=== PATIENT | male | born 1975 | race American Indian/Alaskan Native ===

== ENCOUNTER 2022-03-05 10:30 | Inpatient (IN) | payer OTHER ==
[2022-03-05] MEDS ORDERED: dilTIAZem 25 MG/5 ML INJ IV ONE (10:59)
[2022-03-05 11:43] LABS: Basophils # (Auto) 0.1 K/mm3 (0.0-0.1); Basophils % (Auto) 0.8 % (0.0-1.8); Eosinophils # (Auto) 0.2 K/mm3 (0.0-0.4); Eosinophils % (Auto) 2.5 % (0.0-4.3); Hematocrit 47.3 % (35.5-45.6); Hemoglobin 15.5 gm/dl (11.8-15.2); Lymphocytes # (Auto) 1.2 K/mm3 (1.2-5.4); Lymphocytes % (Auto) 19.9 % (13.4-35.0); Mean Corpuscular HGB Conc 33 % (32-34); Mean Corpuscular Volume 87 fl (84-94); Monocytes # (Auto) 0.5 K/mm3 (0.0-0.8); Monocytes % (Auto) 8.6 % (0.0-7.3); Platelet Count 200 K/mm3 (140-440); Red Blood Count 5.43 M/mm3 (3.65-5.03); Red Cell Distribution Width 16.5 % (13.2-15.2)
--- NOTE | 2022-03-05 11:56 | XRay Report ---
CHEST 1 VIEW 03/05/2022 10:47 AM INDICATION / CLINICAL INFORMATION: Dyspnea. COMPARISON: None available. FINDINGS: SUPPORT DEVICES: None. HEART / MEDIASTINUM: No significant abnormality. LUNGS / PLEURA: No significant pulmonary or pleural abnormality. No pneumothorax. ADDITIONAL FINDINGS: No significant additional findings. IMPRESSION: 1. No acute findings. Signer Name: Dusty Suggs Jr, MD Signed: 03/05/2022 11:52 AM Workstation Name: [id number]
[2022-03-05] MEDS ORDERED: hydrALAZINE 20 MG/1 ML INJ IV ONE (12:00)
[2022-03-05 12:06] LABS: Alanine Aminotransferase 19 units/L (7-56); Albumin 4.8 g/dL (3.9-5); BUN/Creatinine Ratio 11; Blood Urea Nitrogen 15 mg/dL (9-20); Calcium 9.4 mg/dL (8.4-10.2); Hemolysis Index 7
--- NOTE | 2022-03-05 14:22 | Emergency Department Report ---
ED General Adult HPI - General Chief complaint: High BP Stated complaint: HYPERTENSION PUI?: No Time Seen by Provider: 03/05/22 10:50 Source: EMS Mode of arrival: Stretcher Limitations: No Limitations - History of Present Illness Initial comments: pt here with htn, reports med compliance, no other complaints pt had his physical today and noticed his BP is leevated, no chest pain no headache -: unknown Severity scale (0 -10): 0 Associated Symptoms: denies: denies other symptoms, confusion, chest pain, cough Treatments Prior to Arrival: none - Related Data Allergies Allergy/AdvReac Type Severity Reaction Status Date / Time No Known Allergies Allergy Verified 03/05/22 10:45 ED Review of Systems ROS: Stated complaint: HYPERTENSION Other details as noted in HPI Constitutional: denies: chills, fever Eyes: denies: eye pain, eye discharge, vision change ENT: denies: ear pain, throat pain Respiratory: denies: cough, shortness of breath, wheezing Cardiovascular: denies: chest pain, palpitations Endocrine: no symptoms reported Gastrointestinal: denies: abdominal pain, nausea, diarrhea Genitourinary: denies: urgency, dysuria Musculoskeletal: denies: back pain, joint swelling, arthralgia Skin: denies: rash, lesions Neurological: denies: headache, weakness, paresthesias Psychiatric: denies: anxiety, depression Hematological/Lymphatic: denies: easy bleeding, easy bruising ED Past Medical Hx - Past Medical History Previous Medical History?: Yes Hx Hypertension: Yes - Social History Smoking Status: Never Smoker Substance Use Type: Alcohol ED Physical Exam - General Limitations: No Limitations General appearance: alert, in no apparent distress - Head Head exam: Present: atraumatic, normocephalic - Eye Eye exam: Present: normal appearance - ENT ENT exam: Present: mucous membranes moist - Neck Neck exam: Present: normal inspection - Respiratory Respiratory exam: Present: normal lung sounds bilaterally. Absent: respiratory distress - Cardiovascular Cardiovascular Exam: Present: regular rate, normal rhythm. Absent: systolic murmur, diastolic murmur, rubs, gallop - GI/Abdominal GI/Abdominal exam: Present: soft, normal bowel sounds - Rectal Rectal exam: Present: deferred - Extremities Exam Extremities exam: Present: normal inspection - Back Exam Back exam: Present: normal inspection - Neurological Exam Neurological exam: Present: alert, oriented X3 - Psychiatric Psychiatric exam: Present: normal affect, normal mood - Skin Skin exam: Present: warm, dry, intact, normal color. Absent: rash ED Course Vital Signs 03/05/22 03/05/22 03/05/22 10:41 10:49 11:05 Temperature 97.9 F Pulse Rate 81 72 77 Respiratory 14 20 Rate Blood Pressure 182/131 182/131 Blood Pressure 179/134 182/131 [Left] O2 Sat by Pulse 99 98 Oximetry 03/05/22 03/05/22 03/05/22 11:51 12:06 12:28 Temperature Pulse Rate 74 71 81 Respiratory 20 20 Rate Blood Pressure 179/134 Blood Pressure 174/123 169/116 [Left] O2 Sat by Pulse 98 98 Oximetry 03/05/22 13:37 Temperature Pulse Rate 98 H Respiratory 20 Rate Blood Pressure Blood Pressure 158/97 [Left] O2 Sat by Pulse 98 Oximetry ED Medical Decision Making - Lab Data Result diagrams: 03/05/22 11:23 03/05/22 11:23 - EKG Data EKG shows normal: sinus rhythm Rate: normal - EKG Data Interpretation: nonspecific ST-T wave oren, LVH - Radiology Data Radiology results: report reviewed, image reviewed - Medical Decision Making work p negative , cardiazem given hydralazine BP improved , spoke with patricio Raymundo agreed to admit him here for HTN urgency for card consult Critical care attestation.: If time is entered above; I have spent that time in minutes in the direct care of this critically ill patient, excluding procedure time. ED Disposition Clinical Impression: Abnormal EKG, Hypertensive emergency Disposition: ADMITTED INPATIENT Is pt being admited?: Yes Does the pt Need Aspirin: No Condition: Stable Instructions: Hypertension (ED) Referrals: RICHAR ARMANDO [Other] - 3-5 Days
--- NOTE | 2022-03-05 14:34 | History and Physical Report ---
History of Present Illness Chief complaint: My blood pressure is really high History of present illness: 46 YO Male with HTN, Obesity, with positive family history of coronary artery disease presents to ED for evaluation. Patient reports "my blood pressure is really high". Patient states that he underwent a routine physical exam today and was found to have elevated blood pressure. EMS was notified and upon arriva l the patient was found to be in distress and was subsequent transported to [facility] for further care and evaluation of the aforementioned symptoms. The patient was seen and evaluated emergency department at 1106 injury. Patient was found to have a blood pressure of 573669/123-131 mmHg which is consistent with hypertensive emergency. Patient initiated on IV antihypertensive therapy and admitted to telemetry due to increased risk of worsening symptoms and for medical stabilization. Patient also found to have EKG changes as well as symptoms consistent with diastolic CHF, hyponatremia, and volume depletion. Cardiology team consulted. Echocardiogram ordered and pending at time of admission. Patient denies fever, chills, chest pain, palpitation, productive cough, skin rash, recent contact, or known exposure to COVID-19. No prior admission for review. No medication listed at time of admission for reconciliation. Advanced care planning conducted in ED. Past History Past Medical History: hypertension, other Past Surgical History: No surgical history, Other (Reviewed) Social history: , lives with family. denies: smoking, alcohol abuse, prescription drug abuse Family history: CAD, hypertension Medications and Allergies Allergies Allergy/AdvReac Type Severity Reaction Status Date / Time No Known Allergies Allergy Verified 03/05/22 10:45 Review of Systems Constitutional: no weight loss, no weight gain, no fever, no chills Ears, nose, mouth and throat: no ear pain, no ear discharge, no tinnitis, no decreased hearing, no nose pain Cardiovascular: no chest pain, no lightheadedness Respiratory: no cough, no excessive sputum, no hemoptysis Gastrointestinal: no abdominal pain, no nausea, no vomiting, no diarrhea Genitourinary Male: no hematuria, no flank pain, no discharge, no urinary frequency, no urinary hesitancy Rectal: no pain, no incontinence, no bleeding Musculoskeletal: no neck stiffness, no arm numbness/tingling, no low back pain, no leg numbness/tingling Integumentary: no rash, no redness, no wounds, no jaundice Neurological: no head injury, no paralysis, no parathesias, no tingling, no seizures, no tremors Psychiatric: no anxiety, no change in sleep habits, no change in appetite, no change in libido, no suicidal ideation Endocrine: no cold intolerance, no heat intolerance, no excessive thirst, no polydipsia, no nocturia, no excessive sweating Hematologic/Lymphatic: no easy bruising, no easy bleeding, no lymphedema Allergic/Immunologic: no allergic rhinitis, no anaphylaxis Exam - Constitutional Vitals: Temp Pulse Resp BP Pulse Ox 97.9 F 98 H 20 158/97 98 03/05/22 10:49 03/05/22 13:37 03/05/22 13:37 03/05/22 13:37 03/05/22 13:37 General appearance: Present: mild distress, obese - EENT Eyes: Present: PERRL ENT: hearing intact, clear oral mucosa - Neck Neck: Present: supple, normal ROM - Respiratory Respiratory effort: normal Respiratory: bilateral: CTA - Cardiovascular Heart Sounds: Present: S1 & S2. Absent: rub, click - Extremities Extremities: pulses symmetrical, No edema Peripheral Pulses: within normal limits - Abdominal General gastrointestinal: Present: soft, non-tender, non-distended, normal bowel sounds Male genitourinary: Present: normal - Integumentary Integumentary: Present: clear, warm, dry - Musculoskeletal Musculoskeletal: gait normal, strength equal bilaterally - Psychiatric Psychiatric: appropriate mood/affect, intact judgment & insight - Neurologic Neurologic: CNII-XII intact, moves all extremities HEART Score - HEART Score Troponin: Troponin T < 0.010 ng/mL (0.00-0.029) 03/05/22 11:23 Results - Labs CBC & Chem 7: 03/05/22 11:23 03/05/22 11:23 Labs: Abnormal lab results 03/05/22 03/05/22 Range/Units 11:23 11:23 RBC 5.43 H (3.65-5.03) M/mm3 Hgb 15.5 H (11.8-15.2) gm/dl Hct 47.3 H (35.5-45.6) % RDW 16.5 H (13.2-15.2) % [place] % (Auto) 8.6 H (0.0-7.3) % Sodium 134 L (137-145) mmol/L Chloride 95.1 L (98-107) mmol/L Creatinine 1.4 H (0.8-1.3) mg/dL Total Bilirubin 1.40 H (0.1-1.2) mg/dL Total Creatine Kinase 353 H (55-170) units/L Assessment and Plan - Patient Problems (1) Hypertensive emergency Current Visit: Yes Status: Acute Plan to address problem: IV antihypertensive therapy, telemetry monitoring, monitor blood pressure per nursing care protocol, continue medical management. (2) Diastolic CHF Current Visit: Yes Status: Suspected Qualifiers: Heart failure chronicity: acute Qualified Code(s): I50.31 - Acute diastolic (congestive) heart failure Plan to address problem: Strict I's/O, monitoring output every shift, daily, afterload reduction, blood pressure control, echocardiogram ordered and pending at time of admission, BNP cardiology team consulted. (3) Obesity (BMI 30.0-34.9) Current Visit: Yes Status: Acute Plan to address problem: Balanced diet, increase physical activity at discharge. Weight direction. (4) Abnormal EKG Current Visit: Yes Status: Acute Plan to address problem: Cardiology team consulted, telemetry monitoring, repeat EKG in a.m. as per cardiology team recommendations. (5) DVT prophylaxis Current Visit: Yes Status: Acute (6) Advance care planning Current Visit: Yes Status: Acute Plan to address problem: Disease education data, care plan discussed, diagnoses discussed, prognosis discussed, patient is full code. Patient knowledges understanding and agreement with care plan, +30 minutes. (7) Preventative health care Current Visit: Yes Status: Acute Plan to address problem: Patient counseled regarding balanced diet, increase physical activity discharge, weight reduction, outpatient follow-up with primary care physician for all age and risk factor appropriate screening test. +30 minutes.
[2022-03-05] MEDS ORDERED: ACETAMINOPHEN 325 MG TAB PO PRN (15:00)
[2022-03-05] MEDS ORDERED: ONDANSETRON 4 MG/2 ML INJ IV PRN (15:00)
[2022-03-05] MEDS ORDERED: HYDROmorphone 0.5 MG/0.5 ML INJ IV PRN (15:00)
[2022-03-05] MEDS ORDERED: oxyCODONE /ACETAMINOPHEN 5-325MG TAB PO PRN (15:00)
[2022-03-05] MEDS ORDERED: ALBUTEROL 2.5 MG/3 ML NEBU IH PRN (16:00)
--- NOTE | 2022-03-05 17:04 | Electrocardiograph Report ---
[facility] Test Date: 2022-03-05 Test Time: 10:57:22 Pat Name: ANDRES JOSUE Department: Room: [facility] Gender: M [employer] Manager: [phone] : [phone] Requested By: AMIRA GREENE Order Number: [id number] Reading MD: Karla Art Measurements Intervals [place] Rate: 70 P: 59 MD: 186 QRS: 8 QRSD: 91 T: 76 QT: 406 QTc: 438 Interpretive Statements Sinus rhythm Probable left atrial enlargement Probable left ventricular hypertrophy with repolarization abnormalities No previous ECG available for comparison Electronically Signed On 03-05-2022 17:04:07 EDT by Karla Art
[2022-03-05] MEDS ORDERED: hydrALAZINE 20 MG/1 ML INJ IV PRN (20:38)
[2022-03-06 04:43] LABS: Basophils # (Auto) 0.1 K/mm3 (0.0-0.1); Basophils % (Auto) 0.5 % (0.0-1.8); Eosinophils # (Auto) 0.2 K/mm3 (0.0-0.4); Hematocrit 48.6 % (35.5-45.6); Hemoglobin 15.7 gm/dl (11.8-15.2); Lymphocytes # (Auto) 1.2 K/mm3 (1.2-5.4); Lymphocytes % (Auto) 13.1 % (13.4-35.0); Mean Corpuscular HGB Conc 32 % (32-34); Mean Corpuscular Volume 87 fl (84-94); Monocytes # (Auto) 0.9 K/mm3 (0.0-0.8); Monocytes % (Auto) 9.9 % (0.0-7.3); Platelet Count 207 K/mm3 (140-440); Red Blood Count 5.57 M/mm3 (3.65-5.03); Red Cell Distribution Width 16.6 % (13.2-15.2)
[2022-03-06 04:59] LABS: Albumin 4.3 g/dL (3.9-5); Calcium 9.3 mg/dL (8.4-10.2)
[2022-03-06 08:19] VITALS: BP 115/69
--- NOTE | 2022-03-06 11:24 | Discharge Summary ---
Providers - Providers Date of Admission: 03/05/22 14:35 Date of discharge: 03/06/22 Attending physician: GINO DIXON 03/05/22 14:35 Consult to Physician [CONS] Routine Comment: Consulting Provider: YOHANNES PEÑA Physician Instructions: Reason For Exam: chf Hospitalization Reason for admission: Accelerated hypertension Condition: Stable Hospital course: 46 YO Male with HTN, Obesity, with positive family history of coronary artery disease presents to ED for evaluation of accelerated hypertension. Patient states that he underwent a routine physical exam on the day of admission and was found to have elevated blood pressure. EMS was notified and upon arrival the patient was found to be in distress and was subsequent transported to [facility] for further care and evaluation of the aforementioned symptoms. The patient was seen and evaluated emergency department. Patient was found to have a blood pressure of 802047/123-131 mmHg which was consistent with hypertensive emergency. Patient initiated on IV antihypertensive therapy and admitted to telemetry due to increased risk of worsening symptoms and for medical stabil ization. Patient also found to have EKG changes as well as symptoms consistent with diastolic CHF, hyponatremia, and volume depletion. Cardiology team consulted. Echocardiogram ordered. Echocardiogram revealed mild concentric left ventricular hypertrophy and left ventricular systolic function that was normal left ventricular ejection fraction within normal range of 55-60%. Mild diastolic dysfunction. Cardiology evaluated the patient and felt that there was no diastolic heart failure noted. Patient's blood pressure stabilized with the administration of BP meds. Patient's blood servicing maximal hospital benefit and will be discharged home. Dedicated discharge time 32 minutes. Patient reports that he takes lisinopril at home which cardiology recommends that he resumes. Patient currently is normotensive Disposition: 30 STILL A PATIENT Final Discharge Diagnosis (Prints w/discharge instructions): Accelerated hypertension, obesity Core Measure Documentation - Palliative Care Palliative Care/ Comfort Measures: Not Applicable - Core Measures Any of the following diagnoses?: none Exam - Constitutional Vitals: Temp Pulse Resp BP Pulse Ox 98.4 F 89 18 115/69 99 03/06/22 07:40 03/06/22 08:00 03/06/22 07:40 03/06/22 08:15 03/06/22 09:13 General appearance: Present: no acute distress, well-nourished - EENT Eyes: Present: PERRL ENT: hearing intact, clear oral mucosa - Neck Neck: Present: supple, normal ROM - Respiratory Respiratory effort: normal Respiratory: bilateral: CTA - Cardiovascular Heart Sounds: Present: S1 & S2. Absent: rub, click - Extremities Extremities: pulses symmetrical, No edema Peripheral Pulses: within normal limits - Abdominal General gastrointestinal: Present: soft, non-tender, non-distended, normal bowel sounds Male genitourinary: Present: normal - Integumentary Integumentary: Present: clear, warm, dry - Musculoskeletal Musculoskeletal: gait normal, strength equal bilaterally - Psychiatric Psychiatric: appropriate mood/affect, intact judgment & insight - Neurologic Neurologic: CNII-XII intact, moves all extremities Plan Activity: advance as tolerated Weight Bearing Status: Weight Bear as Tolerated Diet: low fat, low cholesterol, low salt Follow up with: RICHAR ARMANDO [Other] - 3-5 Days
--- NOTE | 2022-03-06 14:24 | Consultation ---
History of Present Illness Consult date: 03/06/22 Requesting physician: MELYSSA GRIFFITH Consult reason: congestive heart failure History of present illness: Patient is a 46-year-old male with a past medical history of hypertension came to the ED from his job due to having high blood pressure. Patient reports that he was getting medical clearance at his job after being out of work and states that upon exam blood pressure was found to be elevated and was sent to the ED. In the ED patient was found to have blood pressures of 180/120. Patient does report that he is not completely compliant with his lisinopril. Patient given IV Cardizem and IV hydralazine. At time of interview patient denies any complaints including lightheadedness, dizziness, headaches, chest pain, shortness of breath. Cardiology was consulted for CHF Past History Past Medical History: hypertension, other Past Surgical History: No surgical history, Other (Reviewed) Social history: , lives with family. denies: smoking, alcohol abuse, prescription drug abuse Family history: CAD, hypertension Medications and Allergies Allergies Allergy/AdvReac Type Severity Reaction Status Date / Time No Known Allergies Allergy Verified 03/05/22 10:45 Home Medications Medication Instructions Recorded Confirmed Last Taken Type Amlodipine Besylate [Norvasc] 10 mg PO DAILY 03/06/22 03/06/22 Unknown History Atorvastatin Calcium 20 mg PO DAILY 03/06/22 03/06/22 Unknown History Lisinopril/Hydrochlorothiazide 40 mg PO DAILY 03/06/22 03/06/22 Unknown History Active Meds: Active Medications Acetaminophen (Acetaminophen 325 Mg Tab) 650 mg PO Q4H PRN PRN Reason: Pain MILD(1-3)/Fever >100.5/CARMEN Albuterol (Albuterol 2.5 Mg/3 Ml Nebu) 2.5 mg IH Q4HRT PRN PRN Reason: Shortness Of Breath Hydralazine HCl (Hydralazine 20 Mg/1 Ml Inj) 10 mg IV Q6HR PRN PRN Reason: Hypertension Last Admin: 03/06/22 00:06 Dose: 10 mg Hydromorphone HCl (Hydromorphone 0.5 Mg/0.5 Ml Inj) 0.5 mg IV Q23H PRN PRN Reason: Pain , Severe (7-10) Ondansetron HCl (Ondansetron 4 Mg/2 Ml Inj) 4 mg IV Q8H PRN PRN Reason: Nausea And Vomiting Oxycodone/Acetaminophen (Oxycodone /Acetaminophen 5-325mg Tab) 1 tab PO Q16H PRN PRN Reason: Pain, Moderate (4-6) Sodium Chloride (Sodium Chloride 0.9% 10 Ml Flush Syringe) 10 ml IV BID LISANDRO Last Admin: 03/05/22 22:00 Dose: 10 ml Sodium Chloride (Sodium Chloride 0.9% 10 Ml Flush Syringe) 10 ml IV PRN PRN PRN Reason: LINE FLUSH Review of Systems All systems: negative (Patient denies any complaints) Physical Examination Vital Signs Pulse Resp BP Pulse Ox 81 14 179/134 99 03/05/22 10:41 03/05/22 10:41 03/05/22 10:41 03/05/22 10:41 General appearance: no acute distress HEENT: Positive: Normocephaly Neck: Positive: trachea midline Cardiac: Positive: Reg Rate and Rhythm Lungs: Positive: clear to auscultation, Normal Breath Sounds Neuro: Positive: Grossly Intact Abdomen: Positive: Soft, Active Bowel Sounds Skin: Negative: Rash, Suspicious Lesions, Ulceration Extremities: Present: upper extr. pulses. Absent: edema Results 03/06/22 04:23 03/06/22 04:23 Cardiac Enzymes 03/06/22 Range/Units 04:23 AST 19 (5-40) units/L CBC 03/06/22 Range/Units 04:23 WBC 9.6 (4.5-11.0) K/mm3 RBC 5.57 H (3.65-5.03) M/mm3 Hgb 15.7 H (11.8-15.2) gm/dl Hct 48.6 H (35.5-45.6) % Plt Count 207 (140-440) K/mm3 Lymph # (Auto) 1.2 (1.2-5.4) K/mm3 [place] # (Auto) 0.9 H (0.0-0.8) K/mm3 Eos # (Auto) 0.2 (0.0-0.4) K/mm3 Baso # (Auto) 0.1 (0.0-0.1) K/mm3 Comprehensive Metabolic Panel 03/06/22 Range/Units 04:23 Sodium 136 L (137-145) mmol/L Potassium 3.8 (3.6-5.0) mmol/L Chloride 101.5 (98-107) mmol/L Carbon Dioxide 22 (22-30) mmol/L BUN 24 H (9-20) mg/dL Creatinine 2.0 H (0.8-1.3) mg/dL Glucose 102 H (75-100) mg/dL Calcium 9.3 (8.4-10.2) mg/dL AST 19 (5-40) units/L ALT 16 (7-56) units/L Alkaline Phosphatase 52 (35-129) units/L Total Protein 7.5 (6.3-8.2) g/dL Albumin 4.3 (3.9-5) g/dL - Imaging and Cardiology Echo: report reviewed EKG: report reviewed, image reviewed EKG interpretations - Telemetry EKG Rhythm: Sinus Rhythm - EKG Sinus rhythms and dysrhythmias: sinus rhythm Chamber hypertrophy or enlargement: left ventricular hypertro Repolarization changes or abnormalities: nonspecific abnormality, ST segment, and/or T wave Assessment and Plan Patient is a 46-year-old male with a past medical history of hypertension came to the ED from his job due to having high blood pressure. Hypertensive urgency Echo 03/05/2022-EF 55 to 60%. Mild concentric LVH. Mild diastolic dysfunction is present impaired relaxation pattern. Right ventricle systolic function is normal. No pericardial effusion Plan: EKG shows sinus rhythm 70 probable left atrial enlargement, probable LVH with repolarization abnormalities. No acute ischemic changes. Troponin negative x1 patient denies any complaint of chest pain BNP negative, CXR no acute abnormalities, patient denies any complaint of shortness of breath or bilateral lower extremity edema. Patient appears euvolemic on exam. Patient had normal echo patient is not in heart failure Patient BP noted to be elevated on admission however this a.m. patient had soft BP. Every hour BP checks to monitor the patient blood pressure. 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 Castrejon who agrees this plan of care - Patient Problems (1) Hypertensive emergency Current Visit: Yes Status: Acute (2) Obesity (BMI 30.0-34.9) Current Visit: Yes Status: Acute
== END 2022-03-06 16:26 | disposition home or self-care (01) | DRG 305 ==
LOC: ED 10:30 → 4A 14:35
PROVIDERS: ADMIT Internal Medicine; ATTEND Hospitalist
DX: I16.1 Hypertensive emergency (principal); E66.9 Obesity, unspecified; R94.31 Abnormal electrocardiogram [ECG] [EKG]; Z68.30 Body mass index [BMI] 30.0-30.9, adult; I10 Essential (primary) hypertension; Z82.49 Family history of ischemic heart disease and other diseases of the circulatory system; Z79.899 Other long term (current) drug therapy
CPT/HCPCS: 36415; 71045; 80053; 82550; 82553; 83735; 83880; 84484; 85025; 93005; 93306; 94640; G0378; J3490; C8929; J0360